=== PATIENT | female | born 1990 | race Caucasian/White ===

== ENCOUNTER 2016-08-18 09:48 | Inpatient (IN) | payer MEDICAID ==
[~2016-08-18] VITALS: Ht 154.9 cm; Wt 72.6 kg
[2016-08-18] MEDS ORDERED: ONDANSETRON 4 MG VIAL ONE (15:53)
[2016-08-18] MEDS ORDERED: MORPHINE 4 MG/ML SYR ONE (15:54)
[2016-08-18] MEDS ORDERED: SODIUM CHLORIDE 0.9% 1,000 ML ONE ×2 (15:54→16:21)
[2016-08-18] MEDS ORDERED: DEXTROSE 50% SYRINGE 50 ML IV PRN (16:15)
[2016-08-18] MEDS ORDERED: INSULIN DRIP 1 UNIT/ML 100 ML IV SCH (16:15)
[2016-08-18] MEDS ORDERED: PHARMACY TO DOSE LEVAQUIN IV SCH (19:10)
[2016-08-18 20:00] VITALS: BP_SYST 174; RESP 28; TEMP 98.1
[2016-08-18 20:18] VITALS: BMI 30.2
[2016-08-18 21:00] VITALS: BP_SYST 122; RESP 22
[2016-08-18] MEDS: LEVOFLOXACIN 750 MG/150 ML 150 ML IV SCH (21:37)
[2016-08-18 22:00] VITALS: BP_SYST 122; RESP 20
[2016-08-18] MEDS ORDERED: OPTIRAY 350 100 ML VIAL HMH IV ONE (22:30)
[2016-08-18] MEDS ORDERED: ONDANSETRON 4 MG VIAL IV PUSH PRN (22:40)
[2016-08-18 23:00] VITALS: BP_SYST 109; RESP 20
[2016-08-18] MEDS ORDERED: DEXTROSE 5% 1,000 ML IV SCH (23:25)
[2016-08-18] MEDS ORDERED: SODIUM CHLORIDE 0.9% 1,000 ML IV SCH (23:25)
[2016-08-18] MEDS ORDERED: DEXTROSE 5% SALINE 0.45% 1,000 ML IV SCH (23:25)
[2016-08-18] MEDS ORDERED: SODIUM CHLORIDE 0.45% 1,000 ML IV SCH (23:25)
[2016-08-19] VITALS (25 sets, daily range): BP systolic 92–129; RESP 12–27; TEMP 97.8–98.7; Ht 154.9 cm; Wt 72.6 kg
[2016-08-19] MEDS ORDERED: *PINK BRACELET XX ONE (01:30)
[2016-08-19] MEDS: PANTOPRAZOLE 40 MG TAB PO SCH (07:47)
[2016-08-19] MEDS: LEVOFLOXACIN 750 MG/150 ML 150 ML IV SCH (07:48)
[2016-08-19] MEDS: *HOME MEDS KEPT IN PHARMACY XX SCH ×2 (08:00→19:41)
[2016-08-19] MEDS ORDERED: ACETAMINOPHEN 325 MG TAB PO PRN (08:15)
[2016-08-19] MEDS ORDERED: MISSING DOSE XX ONE (13:55)
[2016-08-19] MEDS: DEXTROSE 5% SALINE 0.9% 1,000 ML IV SCH ×2 (15:07→23:12)
[2016-08-20] VITALS (14 sets, daily range): BP systolic 94–139; RESP 10–24; TEMP 98.2–98.7
[2016-08-20] MEDS ORDERED: INSULIN DRIP 1 UNIT/ML 100 ML IV SCH (06:55)
[2016-08-20] MEDS: PANTOPRAZOLE 40 MG TAB PO SCH (07:44)
[2016-08-20] MEDS: *HOME MEDS KEPT IN PHARMACY XX SCH ×2 (08:00→20:00)
[2016-08-20] MEDS ORDERED: MISSING DOSE XX ONE (08:20)
[2016-08-20] MEDS: LEVEMIR INSULIN SUBQ SCH ×2 (08:25→21:34)
[2016-08-20] MEDS: LEVOFLOXACIN 750 MG/150 ML 150 ML IV SCH (09:07)
[2016-08-20] MEDS ORDERED: DEXTROSE 50% SYRINGE 50 ML IV PRN (23:50)
[2016-08-20] MEDS ORDERED: GLUCAGON 1 MG VIAL IM PRN (23:50)
[2016-08-21] VITALS (8 sets, daily range): BP systolic 112–139; RESP 14–16; TEMP 97.8–98.8
[2016-08-21] MEDS: PANTOPRAZOLE 40 MG TAB PO SCH (06:18)
[2016-08-21] MEDS: *HOME MEDS KEPT IN PHARMACY XX SCH ×2 (07:52→18:27)
[2016-08-21] MEDS: LEVEMIR INSULIN SUBQ SCH (08:25)
[2016-08-21] MEDS ORDERED: MISSING DOSE XX ONE (08:30)
[2016-08-21] MEDS ORDERED: LEVOFLOXACIN 750 MG TAB PO SCH (09:00)
== END 2016-08-21 18:41 | disposition home or self-care (01) | DRG 638 ==
LOC: ENRESERVTM → ENRESERVDT → ER 09:48 → EMR 18:27 → ENPENDDIS 18:27 → CCU 19:42 → 3NT 08-20 17:03
PROVIDERS: ADMIT Family Medicine; ATTEND Family Medicine
DX: E10.10 Type 1 diabetes mellitus with ketoacidosis without coma (principal); N17.9 Acute kidney failure, unspecified; K31.84 Gastroparesis; E10.40 Type 1 diabetes mellitus with diabetic neuropathy, unspecified; E87.5 Hyperkalemia; Z79.4 Long term (current) use of insulin; F10.10 Alcohol abuse, uncomplicated; E10.43 Type 1 diabetes mellitus with diabetic autonomic (poly)neuropathy; E10.65 Type 1 diabetes mellitus with hyperglycemia; K21.9 Gastro-esophageal reflux disease without esophagitis; E86.1 Hypovolemia; E86.0 Dehydration; Z87.891 Personal history of nicotine dependence
CPT/HCPCS: 36415; 71020; 74177; 80053; 81003; 82009; 82803; 82947; 83605; 83690; 84703; 85025; 87040; 87088; 96361; 96365; 96366; 96375; 99222; 99232; 99291